=== PATIENT | male | born 1990 | race Two or more races ===

== ENCOUNTER 2017-11-14 18:55 | Emergency (ER) | payer OTHER ==
[~2017-11-14] VITALS: Ht 175.3 cm; Wt 107.7 kg
[2017-11-14 18:59] VITALS: BP 128/87
[2017-11-14] MEDS ORDERED: DIAZEPAM 5 MG TABLET ONE (19:24)
[2017-11-14] MEDS ORDERED: KETOROLAC 30 MG/1 ML ONE (19:24)
[2017-11-14] MEDS ORDERED: METHOCARBAMOL 750 MG TABLET ONE (19:29)
[2017-11-14] MEDS ORDERED: KETOROLAC 30 MG/1 ML IM ONE (19:30)
[2017-11-14] MEDS ORDERED: DIAZEPAM 5 MG TABLET PO ONE (19:30)
[2017-11-14] MEDS ORDERED: METHOCARBAMOL 750 MG TABLET PO ONE (20:00)
== END 2017-11-14 20:32 | disposition home or self-care (01) ==
LOC: ED 20:20
DX: S39.012A Strain of muscle, fascia and tendon of lower back, initial encounter (principal); I10 Essential (primary) hypertension; Z87.891 Personal history of nicotine dependence; X50.0XXA Overexertion from strenuous movement or load, initial encounter; Y93.89 Activity, other specified; Y99.0 Civilian activity done for income or pay; Y92.69 Other specified industrial and construction area as the place of occurrence of the external cause
CPT/HCPCS: 96372; 99283; J1885

== ENCOUNTER 2017-11-21 16:12 | Emergency (ER) | payer OTHER ==
[~2017-11-21] VITALS: Ht 170.2 cm; Wt 106.7 kg
[2017-11-21 16:16] VITALS: BP 128/79
== END 2017-11-21 19:07 | disposition home or self-care (01) ==
LOC: ED 18:45
DX: M54.5 Low back pain (principal); I10 Essential (primary) hypertension
CPT/HCPCS: 99281

== ENCOUNTER 2018-10-28 16:03 | Emergency (ER) | payer OTHER ==
[~2018-10-28] VITALS: Ht 172.7 cm; Wt 104.5 kg
[2018-10-28 16:28] VITALS: BP 145/93
[2018-10-28] MEDS ORDERED: METHOCARBAMOL 750 MG TABLET ONE (16:56)
[2018-10-28] MEDS ORDERED: KETOROLAC 30 MG/1 ML ONE (16:56)
[2018-10-28] MEDS ORDERED: METHOCARBAMOL 750 MG TABLET PO ONE (17:00)
[2018-10-28] MEDS ORDERED: KETOROLAC 30 MG/1 ML IM ONE (17:00)
== END 2018-10-28 17:31 | disposition home or self-care (01) ==
LOC: ED 17:05
DX: S39.012A Strain of muscle, fascia and tendon of lower back, initial encounter (principal); I10 Essential (primary) hypertension; Z87.891 Personal history of nicotine dependence; X50.0XXA Overexertion from strenuous movement or load, initial encounter; Y93.89 Activity, other specified; Y92.69 Other specified industrial and construction area as the place of occurrence of the external cause; Y99.8 Other external cause status
CPT/HCPCS: 96372; 99283; J1885

== ENCOUNTER 2020-02-23 13:40 | Emergency (ER) | payer OTHER ==
[~2020-02-23] VITALS: Ht 172.7 cm; Wt 101.7 kg
[2020-02-23] MEDS ORDERED: ATOR-2 PO (13:48)
[2020-02-23] MEDS ORDERED: LISI10TA2 PO (13:48)
[2020-02-23] MEDS ORDERED: INSU100I34 SQ (13:48)
[2020-02-23] MEDS ORDERED: ERGO500018 PO (13:48)
[2020-02-23] MEDS ORDERED: METF500T17 PO (13:48)
--- NOTE | 2020-02-23 13:48 | NUR ---
AMBULATORY TO ED ROOM 5
--- NOTE | 2020-02-23 13:55 | NUR ---
PT AMBULATORY TO ED ROOM 5 W/ STEADY GAIT. A&OX4, RESP EVEN & UNLABORED, SPEECH CLEAR. C/O PAIN TO UPPER BACK BETWEEN SHOULDER BLADES. "I'M HOPING TO GET SOME MEDS FOR IT" DENIES TRAUMA, FALLING. REPORTS PAIN FOR MONTHS. "I'VE HAD TO SLEEP WITHOUT A PILLOW TO AVOID LUMBAR PAIN WHILE I'M LAYING DOWN." NO PAIN MEDS TAKEN TODAY. 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
[2020-02-23] MEDS ORDERED: [UNRECOGNIZED DRUG - OTHER] (14:08)
[2020-02-23] MEDS ORDERED: KETOROLAC 30 MG/1 ML IM ONE (14:30)
[2020-02-23] MEDS ORDERED: METHOCARBAMOL 750 MG TABLET PO ONE (14:30)
[2020-02-23] MEDS ORDERED: METHOCARBAMOL 750 MG TABLET ONE (14:39)
[2020-02-23] MEDS ORDERED: KETOROLAC 60 MG/2 ML ONE (14:39)
--- NOTE | 2020-02-23 14:44 | NUR ---
RETURNED FROM RADIOLOGY
--- NOTE | 2020-02-23 14:52 | NUR ---
PT STATES HE'S HAD TO "SCOOT UP ON MY PILLOW" AT NIGHT TO SLEEP. ASKED PT ABOUT PRIOR COMMENT R/T NO PILLOW. PT STATES "I HAVEN'T SLEPT WITH A PILLOW FOR THESE LAST 2 WEEKS". "IT'S THE ONLY WAY I CAN SLEEP TO AVOID PAIN TO THE LUMBAR AREA"
[2020-02-23 16:01] VITALS: BP 118/72
--- NOTE | 2020-02-23 16:19 | NUR ---
pt given taxi cab voucher for safe ride home. taxi has been called.
== END 2020-02-23 16:06 | disposition home or self-care (01) ==
LOC: ED 14:25
DX: G89.29 Other chronic pain (principal); M54.5 Low back pain; M54.6 Pain in thoracic spine; I10 Essential (primary) hypertension; F17.200 Nicotine dependence, unspecified, uncomplicated
CPT/HCPCS: 72072; 96372; 99283; J1885

== ENCOUNTER 2020-12-13 20:04 | Emergency (ER) | payer OTHER ==
[~2020-12-13] VITALS: Ht 172.7 cm; Wt 107.9 kg
[~2020-12-13 20:04] MED LIST: ATOR-2 PO; ERGO500018 PO; INSU100I34 SQ; LISI10TA2 PO; METF500T17 PO; [UNRECOGNIZED DRUG - OTHER]
--- NOTE | 2020-12-13 20:28 | NUR ---
assessment made. chart up for MD to see. c/o low back pain ( chronic )
--- NOTE | 2020-12-13 20:37 | NUR ---
PA at bedside.
[2020-12-13] MEDS ORDERED: KETOROLAC 30 MG/1 ML ONE (20:57)
[2020-12-13] MEDS ORDERED: KETOROLAC 30 MG/1 ML IM ONE (21:00)
[2020-12-13 21:02] VITALS: BP 136/97
--- NOTE | 2020-12-13 21:03 | NUR ---
task rn: Patient given discharge instructions and they have confirmed that they understand the instructions. Patient ambulatory with steady gait. nad, denies additional questions or needs prior to dc. no personal belongings left in room after dc.
== END 2020-12-13 21:04 | disposition home or self-care (01) ==
LOC: ED 20:35
DX: M54.5 Low back pain (principal); G89.29 Other chronic pain; Z72.9 Problem related to lifestyle, unspecified; I10 Essential (primary) hypertension; F17.210 Nicotine dependence, cigarettes, uncomplicated
CPT/HCPCS: 96372; 99283; J1885